=== PATIENT | female | born 1930 | race Caucasian/White ===

== ENCOUNTER 2018-04-10 18:29 | Emergency (ER) | payer OTHER ==
[2018-04-10 18:30] VITALS: BP 213/88; PULSE 79; RESP 16; TEMP 97.5; O2SAT 100
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
[2018-04-10] MEDS ORDERED: ESTR.625 PO (18:43)
[2018-04-10] MEDS ORDERED: LEVO.1 PO (18:43)
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
== END 2018-04-10 20:46 | disposition home or self-care (01) ==
LOC: NEPC 18:29
DX: S00.83XA Contusion of other part of head, initial encounter (principal); Y04.2XXA Assault by strike against or bumped into by another person, initial encounter; Y93.F9 Activity, other caregiving; E03.9 Hypothyroidism, unspecified; Z85.43 Personal history of malignant neoplasm of ovary
CPT/HCPCS: 70450; 70486; 72125; 99283